=== PATIENT | male | born 1975 | race Caucasian/White ===

== ENCOUNTER 2019-04-05 14:32 | Emergency (ER) | payer MEDICAID, OTHER ==
[~2019-04-05] VITALS: Ht 175.3 cm; Wt 81.6 kg
--- NOTE | 2019-04-05 14:35 | NUR ---
[id number], came to er c/o right foot pain s/p stepped on a piece of metal 2 days ago, not UTD with TDAP. CMS WNL. RR is even and unlabored with nad noted. skin is warm and dry. Awaiting md for eval.
[2019-04-05] MEDS ORDERED: CEPHALEXIN MONOHYDRATE 500 MG CAPSULE PO ONE (15:34)
[2019-04-05] MEDS ORDERED: LEVOFLOXACIN (750 MG) 750 MG TABLET ONE (15:34)
[2019-04-05] MEDS ORDERED: IBUPROFEN 600 MG TABLET PO ONE (15:34)
[2019-04-05] MEDS ORDERED: TDAP [DIPH/PERTUSSIS/TET] 0.5 ML VIAL IM ONE (15:34)
[2019-04-05] MEDS: LEVOFLOXACIN (750 MG) 750 MG TABLET PO STA (15:41)
[2019-04-05] MEDS: CEPHALEXIN MONOHYDRATE 500 MG CAPSULE PO ONE (15:41)
[2019-04-05] MEDS: IBUPROFEN 600 MG TABLET PO ONE (15:41)
[2019-04-05] MEDS: TDAP [DIPH/PERTUSSIS/TET] 0.5 ML VIAL IM ONE (15:42)
--- NOTE | 2019-04-05 16:10 | NUR ---
ORDERED FOOD [id number]
--- NOTE | 2019-04-05 17:02 | NUR ---
Provided food at .
--- NOTE | 2019-04-05 17:05 | NUR ---
FOOD TRAY PROVIDED.
[2019-04-05 17:06] VITALS: BP 122/71
--- NOTE | 2019-04-05 17:07 | NUR ---
Patient discharged to home in stable condition. Written and verbal after care instructions given. Patient verbalizes understanding of instruction.
== END 2019-04-05 17:08 | disposition home or self-care (01) ==
LOC: ER 14:36
DX: L03.115 Cellulitis of right lower limb (principal); W22.8XXA Striking against or struck by other objects, initial encounter; Y93.89 Activity, other specified; Y92.89 Other specified places as the place of occurrence of the external cause; Y99.8 Other external cause status
CPT/HCPCS: 73630-TC; 90715

== ENCOUNTER 2019-05-20 02:39 | Emergency (ER) | payer MEDICAID ==
[~2019-05-20] VITALS: Ht 175.3 cm; Wt 81.6 kg
[2019-05-20 02:49] VITALS: BP 146/90
[2019-05-20] MEDS ORDERED: IBUPROFEN 400 MG TABLET ONE (03:19)
[2019-05-20] MEDS ORDERED: IBUPROFEN 400 MG TABLET PO ONE (03:30)
--- NOTE | 2019-05-20 03:41 | NUR ---
Patient discharged to home in stable condition. Written and verbal after care instructions given. Patient verbalizes understanding of instruction.
== END 2019-05-20 03:42 | disposition home or self-care (01) ==
LOC: ER 02:40
DX: M54.5 Low back pain (principal); F10.10 Alcohol abuse, uncomplicated; F17.200 Nicotine dependence, unspecified, uncomplicated; Y90.9 Presence of alcohol in blood, level not specified